=== PATIENT | female | born 2000 | race Hispanic/Latino ===

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

== ENCOUNTER 2021-07-17 22:30 | Emergency (ER) | payer BC ==
[~2021-07-17] VITALS: Ht 160 cm; Wt 91.0 kg
[~2021-07-17 22:30] MED LIST changes: +PRILOSEC20 MG PO
[2021-07-18 03:01] VITALS: BP 138/79
[2021-07-18] MEDS ORDERED: IBUPROFEN600 MG PO (03:08)
== END 2021-07-18 03:19 | disposition home or self-care (01) | DRG 605 ==
LOC: ED 22:30
DX: S60.222A Contusion of left hand, initial encounter (principal); W19.XXXA Unspecified fall, initial encounter

== ENCOUNTER 2021-12-14 20:37 | Emergency (ER) | payer BC ==
[~2021-12-14] VITALS: Ht 160 cm; Wt 90.0 kg
[~2021-12-14 20:37] MED LIST changes: +IBUPROFEN600 MG PO
[2021-12-14] MEDS ORDERED: FERROUS SULF325 M2 PO (21:15)
[2021-12-14 22:18] LABS: HEMATOCRIT 32.5 % (37.0-47.0); HEMOGLOBIN 9.3 g/dl (12.0-16.0); IMMATURE GRANULOCYTES 0.2 % (0.0-5.0); MEAN CORPUSCULAR HGB 20.3 pG CALC (26.0-32.0); MEAN CORPUSCULAR HGB CONC 28.6 g/dL CAL (32.0-36.0); NEUT# 4.74 thou/uL (2.00-7.15); RED BLOOD COUNT 4.58 mill/uL (4.20-5.60); RED CELL DISTRI WIDTH 18.4 % (11.5-15.5); URINE BILIRUBIN - DIPSTICK NEGATIVE (NEGATIVE); URINE BLOOD DIPSTICK NEGATIVE (NEGATIVE); URINE COLOR YELLOW; URINE GLUCOSE - DIPSTICK NEGATIVE (NEGATIVE); URINE KETONE NEGATIVE (NEGATIVE); URINE LEUK ESTERASE NEGATIVE (NEGATIVE); URINE NITRITE - DIPSTICK NEGATIVE (Negative); URINE PROTEIN - DIPSTICK NEGATIVE (NEG-TRACE); URINE SPECIFIC GRAVITY <=1.005; URINE UROBILINOGEN - DIPSTICK 0.2 E.U./dL (0.2)
[2021-12-14 22:33] LABS: ALBUMIN 4.4 g/dL (3.2-5.0); ALKALINE PHOSPHATASE 76 u/l (38-126); ANION GAP 14 (6-22 (CALC)); BILIRUBIN, TOTAL 0.3 mg/dL (0.0-1.4); BUN 8 mg/dL (7-17); BUN/CREATININE RATIO 12 (12-20 (CALC)); CARBON DIOXIDE 23 mmol/l (22-30); CHLORIDE 106 mmol/l (95-108); CREATININE 0.7 mg/dL (0.5-1.0); GFR FOR AFR.AMER. > 60 ML/MIN (>=60 (CALC)); GFR OTHER RACES > 60 ML/MIN (>=60 (CALC)); POTASSIUM 3.6 mmol/l (3.5-5.1); SGOT/AST 16 u/l (14-36); SODIUM 139 mmol/l (137-146); TOTAL PROTEIN 8.1 g/dL (6.3-8.2)
[2021-12-14 22:45] LABS: MYOGLOBIN 16 ng/mL (0 - 62)
[2021-12-14] MEDS ORDERED: KEFLEX500 MG PO (22:52)
[2021-12-14] MEDS ORDERED: ROBITUSSIN AC10 ML PO (22:52)
[2021-12-14 23:30] VITALS: BP 109/65
== END 2021-12-14 23:30 | disposition home or self-care (01) | DRG 153 ==
LOC: ED 20:37
PROVIDERS: Emergency Medicine
DX: J06.9 Acute upper respiratory infection, unspecified (principal); R07.89 Other chest pain; Z20.822 Contact with and (suspected) exposure to COVID-19; Z91.048 Other nonmedicinal substance allergy status